=== PATIENT | male | born 1940 | race Caucasian/White ===

== ENCOUNTER 2016-09-19 01:32 | Inpatient (IN) | payer MEDICARE ==
[2016-09-19] VITALS (7 sets, daily range): BP systolic 138–148; RESP 15–20; TEMP 97.6–98.3; Ht 185.4 cm; Wt 120.2 kg
[~2016-09-19] VITALS: Ht 185.4 cm; Wt 120.2 kg
[2016-09-19] MEDS ORDERED: ASPIRIN 81 MG CHEW TAB ONE (01:52)
[2016-09-19] MEDS ORDERED: METHYLPRED SOD SUCC 125 MG/2 ML VIAL ONE (04:11)
[2016-09-19] MEDS ORDERED: DUONEB INH ONE ×2 (04:21)
[2016-09-19] MEDS ORDERED: NEB-ALBUTEROL 2.5 MG/3 ML INH ONE (05:24)
[2016-09-19] MEDS ORDERED: BISACODYL 10 MG SUPP RECTAL PRN (06:05)
[2016-09-19] MEDS ORDERED: TEMAZEPAM 15 MG CAP PO PRN (06:05)
[2016-09-19] MEDS ORDERED: BENZONATATE 100 MG CAP PO PRN (06:05)
[2016-09-19] MEDS ORDERED: GUAIFEN/DM 10 ML UDC PO PRN (06:05)
[2016-09-19] MEDS ORDERED: NITROGLYCERIN SL 0.4 MG TAB SL PRN (06:05)
[2016-09-19] MEDS ORDERED: MAG HYDROX 30 ML UDC PO PRN (06:05)
[2016-09-19] MEDS ORDERED: BISACODYL EC 5 MG TAB PO PRN (06:05)
[2016-09-19] MEDS ORDERED: SALINE FLUSH 10 ML FLUSH PRN (06:05)
[2016-09-19] MEDS ORDERED: ALU/MAG/SIM 30 ML UDC PO PRN (06:05)
[2016-09-19] MEDS ORDERED: ONDANSETRON 4 MG VIAL IV PRN (06:05)
[2016-09-19] MEDS ORDERED: NEB-ALBUTEROL 2.5 MG/3 ML INH PRN (06:05)
[2016-09-19] MEDS: DUONEB INH SCH ×3 (06:30→16:34)
[2016-09-19] MEDS: GUAIFENESIN ER 600 MG TABCR PO SCH ×2 (08:41→20:27)
[2016-09-19] MEDS: METHYLPRED SOD SUCC 125 MG/2 ML VIAL IV SCH ×3 (08:42→23:25)
[2016-09-19] MEDS: SALINE FLUSH 10 ML FLUSH SCH ×2 (08:42→20:27)
[2016-09-19] MEDS: CEFTRIAXONE 1 GM in SODIUM CHLORIDE 0.9% 50 ML IV SCH (08:43)
[2016-09-19] MEDS: ENOXAPARIN 40 MG/0.4 ML SYR SUBQ SCH (08:43)
[2016-09-20] MEDS: DUONEB INH SCH ×4 (00:25→18:26)
[2016-09-20 03:16] VITALS: BP_SYST 136; RESP 22; TEMP 97.8
[2016-09-20] MEDS ORDERED: SODIUM CHLORIDE 0.9% FLUSH BAG 500 ML IV SCH (06:00)
[2016-09-20 07:53] VITALS: BP_SYST 143; RESP 16; TEMP 97.6
[2016-09-20] MEDS: SALINE FLUSH 10 ML FLUSH SCH (08:14)
[2016-09-20] MEDS: METHYLPRED SOD SUCC 125 MG/2 ML VIAL IV SCH ×2 (08:15→16:00)
[2016-09-20] MEDS: CEFTRIAXONE 1 GM in SODIUM CHLORIDE 0.9% 50 ML IV SCH (08:15)
[2016-09-20] MEDS ORDERED: ASPIRIN EC 81 MG TAB PO SCH (08:15)
[2016-09-20] MEDS: GUAIFENESIN ER 600 MG TABCR PO SCH (08:15)
[2016-09-20] MEDS ORDERED: NITROGLYCERIN SL 0.4 MG TAB SL PRN (08:15)
[2016-09-20] MEDS ORDERED: Losartan 50 MG TAB PO SCH (08:15)
[2016-09-20] MEDS: ENOXAPARIN 40 MG/0.4 ML SYR SUBQ SCH (08:15)
[2016-09-20] MEDS ORDERED: Carvedilol 6.25 MG TAB PO SCH (09:00)
[2016-09-20] MEDS ORDERED: AMIODARONE 200 MG TAB PO SCH (09:00)
[2016-09-20] MEDS ORDERED: CLOPIDOGREL 75 MG TAB PO SCH (09:00)
[2016-09-20] MEDS ORDERED: MULTIVITS/MINERALS (THERAGRAN M) TAB PO SCH (09:00)
[2016-09-20 10:59] VITALS: BP_SYST 148; RESP 16; TEMP 97.9
[2016-09-20 15:09] VITALS: BP_SYST 136; RESP 18; TEMP 97.5
[2016-09-20] MEDS ORDERED: PREDNISONE 20 MG TAB PO SCH (18:00)
[2016-09-20 19:05] VITALS: BP_SYST 136; RESP 18; TEMP 97.5
[2016-09-20] MEDS ORDERED: PANTOPRAZOLE 40 MG TAB PO SCH (21:00)
[2016-09-20] MEDS ORDERED: Atorvastatin 40 MG TAB PO SCH (21:00)
[2016-09-20] MEDS ORDERED: ISOSORBIDE MONO 60 MG TAB PO SCH (21:00)
== END 2016-09-20 19:50 | disposition home or self-care (01) | DRG 192 ==
LOC: ENRESERVDT → ENRESERVTM → ER 01:32 → EMR 05:26 → ENPENDDIS 05:26 → 5THE 06:35
PROVIDERS: ADMIT Family Medicine; ATTEND Family Medicine
CPT/HCPCS: 36600; 71010; 93005; 94640; 94799; 96374; 99223; 99232